=== PATIENT | male | born 1975 | race African-American/Black ===

== ENCOUNTER 2016-06-10 12:56 | Emergency (ER) | payer OTHER ==
[~2016-06-10] VITALS: Ht 170.2 cm; Wt 74.1 kg
[~2016-06-10 12:56] MED LIST: AUGMENTIN 875 MG; BACTRIM,SEPT1 TABLET; BACTRIM,SEPT1 TABLET PO; CARAFATE1 GM PO; CEPHALEXIN500 MG; CLEOCIN300 MG PO; COLACE100 MG PO; KEFLEX500 MG PO; LORTAB 5-325 M1 EACH PO; NAPROSYN500 MG PO; NOHOMEMEDS; PANTOPRAZOLE SO40 MG PO; PERCOCET 5/31 TABLET PO; PERIDEX1 ML MM; PROCTOCREAM-HC30 GM PR; PROTONIX40 MG PO; TRAMADOL HCL50 MG PO; TYLENOL REGULA325 MG PO; ZOFRAN4 MG PO
[2016-06-10] MEDS ORDERED: ULTRAM50 MG PO (16:32)
[2016-06-10 16:39] VITALS: BP 00/0
== END 2016-06-10 16:40 | disposition home or self-care (01) ==
LOC: EME 12:56
PROC: 2W38X1Z Immobilization of Right Upper Extremity using Splint (ICD-10-PCS; principal; 2016-06-10)
DX: S42.401A Unspecified fracture of lower end of right humerus, initial encounter for closed fracture (principal); X58.XXXA Exposure to other specified factors, initial encounter; Z87.891 Personal history of nicotine dependence
CPT/HCPCS: 73080; 99281; 99284

== ENCOUNTER 2016-06-13 10:52 | Emergency (ER) | payer OTHER ==
[~2016-06-13] VITALS: Ht 170.2 cm; Wt 76.0 kg
[~2016-06-13 10:52] MED LIST changes: +ULTRAM50 MG PO
[2016-06-13 13:29] LABS: HEMATOCRIT 38.2 % (38.0-50.0); MCH 34.5 PG (29.0-34.0); MCHC 33.5 G/DL (30.0-36.0); MEAN PLAT.VOLUME 9.7 uM^3 (9.0-12.4); PLATELET COUNT 245 K/uL (156-360); RBC DIS.WIDTH-CV 11.4 % (11.8-14.6); RBC DIS.WIDTH-SD 43.1 % (39-53); RED BLOOD COUNT 3.71 M/uL (4.00-5.50)
[2016-06-13 14:11] LABS: ANION GAP 7 MEQ/L (2-14); CHLORIDE 102 MEQ/L (99-109); POTASSIUM 3.6 MEQ/L (3.7-5.4); SAMPLE HEMOLYSIS CHECK 0; SAMPLE ICTERIC CHECK 0; SAMPLE LIPEMIA CHECK 0; SODIUM 136 MEQ/L (136-147); TOTAL BILIRUBIN 0.7 MG/DL (0.0-1.0)
[2016-06-13 14:17] LABS: ALKALINE PHOSPHATASE 49 IU/L (3-129); GFR ESTIMATE (CALCULATED) > 59 mL/min/; GLUCOSE 69 mg/dL (70-99); UREA NITROGEN (BUN) 11 mg/dL (9-23)
[2016-06-13 14:59] VITALS: BP 135/65
== END 2016-06-13 15:00 | disposition home or self-care (01) ==
LOC: EME 10:52
PROVIDERS: Physician Assistant
DX: Z20.828 Contact with and (suspected) exposure to other viral communicable diseases (principal); Z87.891 Personal history of nicotine dependence
CPT/HCPCS: 80053; 85027; 99281; 99283

== ENCOUNTER 2016-08-23 15:53 | Emergency (ER) | payer OTHER ==
[~2016-08-23] VITALS: Ht 167.6 cm; Wt 81.2 kg
[2016-08-23 17:03] LABS: HEMATOCRIT 35.5 % (38.0-50.0); MCH 35.1 PG (29.0-34.0); MCHC 34.1 G/DL (30.0-36.0); MCV 102.9 FL (86-99); MEAN PLAT.VOLUME 9.4 uM^3 (9.0-12.4); PLATELET COUNT 220 K/uL (156-360); RBC DIS.WIDTH-CV 11.6 % (11.8-14.6); RBC DIS.WIDTH-SD 44.3 % (39-53); RED BLOOD COUNT 3.45 M/uL (4.00-5.50)
[2016-08-23 17:16] LABS: CHLORIDE 105 mEq/L (99-109); POTASSIUM 3.8 mEq/L (3.7-5.4); SODIUM 136 mEq/L (136-147)
[2016-08-23 17:18] LABS: GLUCOSE 85 mg/dL (70-99)
[2016-08-23 17:20] LABS: ANION GAP 6 MEQ/L (2-14)
[2016-08-23 17:21] LABS: SERUM ETHYL ALCOHOL < 10 mg/dL
[2016-08-23 17:22] LABS: GFR ESTIMATE (CALCULATED) > 59 mL/min/
[2016-08-23 17:23] LABS: UREA NITROGEN (BUN) 11 mg/dL (9-23)
[2016-08-23 19:01] LABS: AMPHETAMINE NEGATIVE (500 ng/mL); BARBITURATES NEGATIVE (200 ng/mL); BENZODIAZEPINES NEGATIVE (150 ng/mL); COCAINE NEGATIVE (150 ng/mL); INTERNAL CONTROLS VALID? YES; METHADONE NEGATIVE (200 ng/mL); METHAMPHETAMINE NEGATIVE (500 ng/mL); OPIATES (MORPHINE) NEGATIVE (100 ng/mL); OXYCODONE NEGATIVE (100 ng/mL); PHENCYCLIDINE NEGATIVE (25 ng/mL); PROPOXYPHENE NEGATIVE (300 ng/mL); THC CANNABINOIDS NEGATIVE (50 ng/mL); TRICYCLIC ANTIDEPRESSANTS NEGATIVE (300 ng/mL)
[2016-08-23 20:42] VITALS: BP 108/73
== END 2016-08-23 20:45 | disposition home or self-care (01) ==
LOC: EME 15:53
PROVIDERS: Emergency Medicine
DX: T40.991A Poisoning by other psychodysleptics [hallucinogens], accidental (unintentional), initial encounter (principal); F16.129 Hallucinogen abuse with intoxication, unspecified; F10.129 Alcohol abuse with intoxication, unspecified; F32.9 Major depressive disorder, single episode, unspecified; K21.9 Gastro-esophageal reflux disease without esophagitis; Z87.891 Personal history of nicotine dependence
CPT/HCPCS: 70450; 72125; 80048; 85027; 93005; 99281; 99285; G0480; J7030

== ENCOUNTER 2016-08-28 21:51 | Emergency (ER) | payer OTHER ==
[~2016-08-28] VITALS: Ht 167.6 cm; Wt 74.1 kg
[2016-08-28 22:37] LABS: EOSINOPHIL (%) 4.6 % (0-5); EOSINOPHIL COUNT 0.2 K/uL (0-0.3); HEMATOCRIT 39.6 % (38.0-50.0); IMMATURE GRANULOCYTE (%) 0.2 % (0.0-0.7); INSTRUMENT ABS NEUTROPHIL CT 2.9 K/uL; LYMPHOCYTE COUNT 1.5 K/uL (1.0-2.8); MCH 35.5 PG (29.0-34.0); MCHC 34.6 G/DL (30.0-36.0); MCV 102.6 FL (86-99); MEAN PLAT.VOLUME 9.1 uM^3 (9.0-12.4); MONOCYTE (%) 8.7 % (3-12); MONOCYTE COUNT 0.4 K/uL (0-0.8); NEUTROPHIL (%) 57.5 % (45-76); NEUTROPHIL COUNT 2.9 K/uL (1.8-6.4); PLATELET COUNT 240 K/uL (156-360); RBC DIS.WIDTH-CV 11.8 % (11.8-14.6); RBC DIS.WIDTH-SD 44.4 % (39-53); RED BLOOD COUNT 3.86 M/uL (4.00-5.50)
[2016-08-28 22:45] LABS: CHLORIDE 105 mEq/L (99-109); POTASSIUM 3.9 mEq/L (3.7-5.4); SODIUM 136 mEq/L (136-147)
[2016-08-28 22:46] LABS: GLUCOSE 79 mg/dL (70-99)
[2016-08-28 22:48] LABS: ANION GAP 10 MEQ/L (2-14)
[2016-08-28 22:50] LABS: GFR ESTIMATE (CALCULATED) > 59 mL/min/; SERUM ETHYL ALCOHOL < 10 mg/dL
[2016-08-28 22:51] LABS: UREA NITROGEN (BUN) 9 mg/dL (9-23)
[2016-08-28 22:59] LABS: ADD MIUA? NO; BILIRUBIN NEGATIVE; BLOOD NEGATIVE; COLOR YELLOW ((YELLOW)); GLUCOSE (STRIP) NEGATIVE; KETONES NEGATIVE; LEUKOCYTES NEGATIVE; NITRITE NEGATIVE; PROTEIN (STRIP) NEGATIVE; SPECIFIC GRAVITY 1.013 (1.000-1.030); UCUL ADDED? NO; UROBILINOGEN 0.2 MG/DL (0.2-1.0)
[2016-08-28 23:23] LABS: ADD MEDTOX COMMENT Y; AMPHETAMINE NEGATIVE (500 ng/mL); BARBITURATES NEGATIVE (200 ng/mL); BENZODIAZEPINES NEGATIVE (150 ng/mL); COCAINE NEGATIVE (150 ng/mL); INTERNAL CONTROLS VALID? YES; METHADONE NEGATIVE (200 ng/mL); METHAMPHETAMINE NEGATIVE (500 ng/mL); OPIATES (MORPHINE) NEGATIVE (100 ng/mL); OXYCODONE NEGATIVE (100 ng/mL); PHENCYCLIDINE NEGATIVE (25 ng/mL); PROPOXYPHENE NEGATIVE (300 ng/mL); THC CANNABINOIDS PRESUMPTIVE POSITIVE (50 ng/mL); TRICYCLIC ANTIDEPRESSANTS NEGATIVE (300 ng/mL)
[2016-08-29 01:02] VITALS: BP 13/75
== END 2016-08-29 01:06 | disposition home or self-care (01) ==
LOC: EME 21:51
PROVIDERS: Emergency Medicine
DX: R56.9 Unspecified convulsions (principal); F32.9 Major depressive disorder, single episode, unspecified; F19.10 Other psychoactive substance abuse, uncomplicated; Z87.891 Personal history of nicotine dependence; K21.9 Gastro-esophageal reflux disease without esophagitis
CPT/HCPCS: 70450; 71010; 80048; 81003; 84999; 85025; 93005; 99281; 99285; G0480; J7030

== ENCOUNTER 2016-12-25 20:13 | Emergency (ER) | payer OTHER ==
[~2016-12-25] VITALS: Ht 170.2 cm; Wt 68.3 kg
[2016-12-25 21:47] LABS: HEMATOCRIT 37.6 % (38.0-50.0); MCHC 34.3 G/DL (30.0-36.0); MCV 101.9 FL (86-99); MEAN PLAT.VOLUME 9.6 uM^3 (9.0-12.4); PLATELET COUNT 263 K/uL (156-360); RBC DIS.WIDTH-CV 11.6 % (11.8-14.6); RED BLOOD COUNT 3.69 M/uL (4.00-5.50); WHITE BLOOD COUNT 8.5 K/uL (4.1-10.2)
[2016-12-25 21:49] LABS: CHLORIDE 99 mEq/L (99-109); POTASSIUM 3.3 mEq/L (3.7-5.4); SODIUM 134 mEq/L (136-147)
[2016-12-25 21:52] LABS: GLUCOSE 86 mg/dL (70-99)
[2016-12-25 21:53] LABS: ANION GAP 10 MEQ/L (2-14)
[2016-12-25 21:54] LABS: TOTAL BILIRUBIN 1.2 mg/dL (0.0-1.0)
[2016-12-25 21:55] LABS: ALKALINE PHOSPHATASE 65 IU/L (3-129); GFR ESTIMATE (CALCULATED) > 59 mL/min/
[2016-12-25 21:56] LABS: UREA NITROGEN (BUN) 16 mg/dL (9-23)
[2016-12-26 01:35] VITALS: BP 105/79
== END 2016-12-26 01:42 | disposition home or self-care (01) ==
LOC: EME 20:13
DX: F41.9 Anxiety disorder, unspecified (principal); R42 Dizziness and giddiness; F17.200 Nicotine dependence, unspecified, uncomplicated
CPT/HCPCS: 80053; 81003; 85027; 99281; 99284

== ENCOUNTER 2017-02-22 09:23 | Emergency (ER) | payer OTHER ==
[~2017-02-22] VITALS: Ht 170.2 cm; Wt 67.5 kg
[2017-02-22 10:20] LABS: EOSINOPHIL (%) 5.3 % (0-5); EOSINOPHIL COUNT 0.3 K/uL (0-0.3); HEMATOCRIT 35.2 % (38.0-50.0); IMMATURE GRANULOCYTE (%) 0.2 % (0.0-0.7); INSTRUMENT ABS NEUTROPHIL CT 2.4 K/uL; LYMPHOCYTE COUNT 1.6 K/uL (1.0-2.8); MCHC 34.7 G/DL (30.0-36.0); MCV 100.9 FL (86-99); MEAN PLAT.VOLUME 8.9 uM^3 (9.0-12.4); MONOCYTE (%) 7.1 % (3-12); MONOCYTE COUNT 0.3 K/uL (0-0.8); NEUTROPHIL COUNT 2.4 K/uL (1.8-6.4); PLATELET COUNT 246 K/uL (156-360); RBC DIS.WIDTH-CV 11.8 % (11.8-14.6); RED BLOOD COUNT 3.49 M/uL (4.00-5.50); WHITE BLOOD COUNT 4.7 K/uL (4.1-10.2)
[2017-02-22 10:28] LABS: D-DIMER ELISA < 150.00 ng/mLDDU (<230)
[2017-02-22 10:30] LABS: CHLORIDE 105 mEq/L (99-109); POTASSIUM 4.2 mEq/L (3.7-5.4); SODIUM 136 mEq/L (136-147)
[2017-02-22 10:32] LABS: GLUCOSE 92 mg/dL (70-99)
[2017-02-22 10:33] LABS: ANION GAP 7 MEQ/L (2-14)
[2017-02-22 10:34] LABS: TOTAL BILIRUBIN 0.7 mg/dL (0.0-1.0)
[2017-02-22 10:35] LABS: ALKALINE PHOSPHATASE 60 IU/L (3-129)
[2017-02-22 10:36] LABS: GFR ESTIMATE (CALCULATED) > 59 mL/min/
[2017-02-22 10:37] LABS: UREA NITROGEN (BUN) 11 mg/dL (9-23)
[2017-02-22 10:40] LABS: TROP-I INTERPRETATION NEGATIVE; TROPONIN-I < 0.01 ng/mL (0.0-0.30)
[2017-02-22 12:47] LABS: TROP-I INTERPRETATION NEGATIVE; TROPONIN-I < 0.01 ng/mL (0.0-0.30)
[2017-02-22 14:00] VITALS: BP 137/84
== END 2017-02-22 14:45 | disposition home or self-care (01) ==
LOC: EME 09:23
PROVIDERS: Emergency Medicine
DX: R07.89 Other chest pain (principal); F32.9 Major depressive disorder, single episode, unspecified; F41.9 Anxiety disorder, unspecified; K21.9 Gastro-esophageal reflux disease without esophagitis; Z72.0 Tobacco use
CPT/HCPCS: 71010; 80053; 84484; 85025; 85379; 93005; 99281; 99284